=== PATIENT | male | born 1950 | race Caucasian/White ===

== ENCOUNTER → 2017-10-17 12:17 | Outpatient (CLI) | payer MEDICARE, OTHER, SELFPAY ==
[2017-10-17 14:12] LABS: Absolute Lymphocyte Count 1.27 X10^3/ul (0.83-4.51); Basophil# 0.03 X10^3/uL; Basophil% 0.6 % (0-1); Eosinophil# 0.26 X10^3/uL; Eosinophils% 5.4 % (0-5); Hematocrit 45.1 % (40-54); Hemoglobin 15.2 g/dl (13.0-16.5); Lymphocyte # 1.27 X10^3/ul (4.0); Lymphocyte % 26.2 % (19-41); Mean Corp Hgb Conc 33.7 g/gl (32-36); Mean Corpuscular Hgb 31.5 pg (27.0-32.0); Mean Corpuscular Volume 93.6 fL (80-94); Mean Platelet Vol. 9.1 fl (6.2-12.0); Monocyte# 0.33 X10^3/uL; Monocyte% 6.8 % (0-10); Neutrophil # 2.96 X10^3/uL (2.7-7.7); POSITIVE COUNT NO; POSITIVE DIFFERENTIAL NO; POSITIVE MORPHOLOGY NO; Platelet Count 197 K/mm3 (150-450); RBC Distribution Width CV 13.2 % (11.6-14.6); RBC Distribution Width SD 45.2 fl (35.1-43.9); Red Blood Count 4.82 M/mm3 (4.6-6.2); White Blood Count 4.9 K/mm3 (4.4-11.0)
[2017-10-17 14:35] LABS: ALB/GLOB Ratio 1.1 RATIO (0.9-2.4); AST(SGOT) 13 U/L (15-37); Alanine Aminotransfer ALT/SGPT 27 U/L (16-61); Albumin, Serum 3.9 g/dL (3.2-5.0); Alkaline Phosphatase 77 U/L (45-117); Anion Gap 7 (5-15); BUN 16 mg/dL (7-18); Calcium,Total 8.8 mg/dL (8.5-10.1); Chloride 107 mmol/L (98-107); Cholesterol 207 mg/dL (200); Creatinine, Serum 0.84 mg/dL (0.70-1.30); EST Glomerular Filtration Rate 96 mL/min (>60); Est Glom Filt Rate - Afr Amer 116 mL/min (>60); Globulin 3.6 g/dL (2.2-4.2); Glucose 81 mg/dL (74-106); High Density Lipoprotein 45 mg/dL; Protein, Total 7.5 g/dL (6.4-8.2); Sodium Level 142 mmol/L (136-145); Triglycerides 81 mg/dL; Very Low Density Lipoprotein 16 mg/dL (5-40)
== END ==
PROVIDERS: Family Provider Family Medicine; PCP Family Medicine; Visit Provider Family Medicine
DX: Z00.00 Encounter for general adult medical examination without abnormal findings (principal)
CPT/HCPCS: 36415; 80053; 80061; 85025

== ENCOUNTER → 2021-01-28 14:43 | Outpatient (CLI) | payer MEDICARE, OTHER, SELFPAY ==
--- NOTE | 2021-01-28 14:52 | RAD_ITS ---
STUDY: X-RAY - BILATERAL RIBS WITH CHEST REASON FOR EXAM: Male, 70 years old. Across the lower chest and ribs bilaterally. Trauma to the anterior chest 2 days ago. TECHNIQUE - RIBS: 6 view(s) of the ribs. TECHNIQUE - CHEST: Single PA view of the chest. COMPARISON: None. FINDINGS - RIBS : Normal visualized ribs without a demonstrated fracture. FINDINGS - CHEST: The lungs are clear and expanded. There is no demonstrated pleural abnormality. Normal size heart. Normal mediastinum and ramonita. Normal visualized pulmonary arteries. Normal visualized aortic arch and descending thoracic aorta. There are diffuse degenerative changes of the visualized thoracic spine. There is degenerative osteoarthritis of the bilateral shoulders. There is no demonstrated abnormality of the visualized soft tissue structures of the upper abdomen. RAD/Ribs [place] Min 4V w/PA Chest IMPRESSION: RIBS: Normal x-ray examination of the bilateral ribs. CHEST: Degenerative changes, as described above. No demonstrated acute cardiopulmonary process. Electronically Signed: Celestino Henriquez DO at 18:06 EDT Tel [phone], Service support ,
== END ==
PROVIDERS: PCP Family Medicine; Referring Provider Family Medicine; Visit Provider Family Medicine
DX: R07.81 Pleurodynia (principal)
CPT/HCPCS: 71111

== ENCOUNTER → 2023-07-14 | Outpatient (CLI) | payer MEDICARE, OTHER, SELFPAY ==
[2023-07-14 17:30] LABS: Absolute Lymphocyte Count 1.54 X10^3/uL (0.83-4.51); Basophil# 0.04 X10^3/uL; Basophil% 0.8 % (0-1); Eosinophils% 3.8 % (0-5); Hematocrit 40.9 % (40-54); Hemoglobin 13.8 g/dL (13.0-16.5); Lymphocyte # 1.54 X10^3/ul (0.83-4.51); Lymphocyte % 29.2 % (19-41); Mean Corp Hgb Conc 33.7 g/dL (32-36); Mean Corpuscular Hgb 31.7 pg (27.0-32.0); Mean Platelet Vol. 9.1 fl (6.2-12.0); Monocyte# 0.44 X10^3/uL; Monocyte% 8.3 % (0-10); NRBC Flagged by Analyzer 0 % (0-5); Neutrophil # 3.03 X10^3/uL (2.7-7.7); Neutrophil % 57.5 % (47-70); Platelet Count 259 K/mm3 (150-450); RBC Distribution Width CV 12.3 % (11.6-14.6); RBC Distribution Width SD 42.8 fl (35.1-43.9); Red Blood Count 4.35 M/mm3 (4.6-6.2); White Blood Count 5.3 K/mm3 (4.4-11.0)
[2023-07-14 18:00] LABS: ALB/GLOB Ratio 0.9 RATIO (0.9-2.4); AST(SGOT) 11 U/L (15-37); Alanine Aminotransfer ALT/SGPT 31 U/L (16-61); Albumin, Serum 3.5 g/dL (3.2-5.0); Alkaline Phosphatase 96 U/L (45-117); Anion Gap 5 (5-15); BUN 18 mg/dL (7-18); BUN/Creat Ratio 19.4 RATIO (10-20); Calcium,Total 9.2 mg/dL (8.5-10.1); Chloride 107 mmol/L (98-107); Creatinine, Serum 0.93 mg/dL (0.70-1.30); EST Glomerular Filtration Rate 85 mL/min (>60); Est Glom Filt Rate - Afr Amer 103 mL/min (>60); Ferritin 199 ng/mL (26-388); Glucose 96 mg/dL (74-106); Magnesium 2.5 mg/dL (1.6-2.6); Potassium 4.2 mmol/L (3.5-5.1); Protein, Total 7.5 g/dL (6.4-8.2); Sodium Level 139 mmol/L (136-145); Thyroid Stim Hormone (TSH) 2.29 uIU/mL (0.358-3.74)
== END | disposition home or self-care (01) ==
LOC: MFPLAB 14:36
PROVIDERS: PCP Family Medicine; Visit Provider Family Medicine
DX: I48.91 Unspecified atrial fibrillation (principal); E87.6 Hypokalemia; Z51.81 Encounter for therapeutic drug level monitoring
CPT/HCPCS: 36415; 80053; 82728; 83735; 84443; 85025

== ENCOUNTER → 2023-08-29 | Outpatient (CLI) | payer MEDICARE, OTHER, SELFPAY ==
--- NOTE | 2023-08-29 16:42 | STRESSREP ---
Stress Test Report Exercise myocardial perfusion stress test. 73-year-old man with a history of atrial fibrillation and coronary artery disease Stress protocol: Resting EKG demonstrates sinus bradycardia with a rate of 56 bpm resting blood pressure is 130/82 mmHg. The patient exercised according to the regular [place] protocol for a total duration of 7 minutes attaining a maximum heart rate of 130 bpm which was 89% of maximum predicted heart rate; the maximum workload was 10 metabolic equivalents. At rest there were no ST or T wave changes noted to suggest ischemia and at peak exercise upsloping ST changes only were noted which did not meet the criteria for ischemia. No clinical angina was noted the test was terminated due to the target heart rate being achieved/fatigue. The peak blood pressure was 154/72 mmHg. Rate-pressure product was 17,007. Myocardial perfusion protocol. 11.1 mCi of technetium 99m sestamibi was injected at rest. The patient exercised according to regular [place] protocol for total duration of 7-minute and at peak exercise 33.5 mCi of technetium 99m sestamibi was injected stress images were obtained stress and rest images were reconstructed in comparing the short axis vertical long and horizontal long axis. Gated images were also obtained. Perfusion SPECT analysis: Review of the stress images demonstrate normal uptake of tracer noted in all areas of the myocardium. The resting images similarly demonstrate normal uptake of tracer noted in all areas of the myocardium. No areas of reversibility are noted to suggest ischemia no previous infarct was noted. Gated SPECT analysis: The gated ejection fraction is 70%. Conclusion: Normal exercise myocardial perfusion stress test at a high workload Preserved ejection fraction.
== END | disposition home or self-care (01) ==
LOC: CVS 06:20
PROVIDERS: PCP Family Medicine; Referring Provider Internal Medicine Cardiovascular Disease; Visit Provider Internal Medicine Cardiovascular Disease
DX: I10 Essential (primary) hypertension (principal); I25.10 Atherosclerotic heart disease of native coronary artery without angina pectoris
CPT/HCPCS: 78452; 93017; A9500; A4216

== ENCOUNTER → 2024-05-07 | Outpatient (CLI) | payer MEDICARE, OTHER, SELFPAY ==
[2024-05-07 12:06] LABS: Absolute Lymphocyte Count 1.29 X10^3/uL (0.83-4.51); Absolute Neutrophil Count 2.7 X10^3/uL (2.0-7.7); Basophil# 0.02 X10^3/uL; Basophil% 0.4 % (0-1); Eosinophil# 0.14 X10^3/uL; Hematocrit 44.6 % (40-54); Hemoglobin 14.7 g/dL (13.0-16.5); Lymphocyte # 1.29 X10^3/ul (0.83-4.51); Lymphocyte % 27.9 % (19-41); Mean Corpuscular Hgb 31.2 pg (27.0-32.0); Mean Corpuscular Volume 94.7 fL (80-94); Mean Platelet Vol. 9.5 fl (6.2-12.0); Monocyte# 0.43 X10^3/uL; Monocyte% 9.3 % (0-10); NRBC Flagged by Analyzer 0 % (0-5); Neutrophil # 2.74 X10^3/uL (2.7-7.7); Neutrophil % 59.2 % (47-70); Platelet Count 192 K/mm3 (150-450); RBC Distribution Width CV 12.7 % (11.6-14.6); RBC Distribution Width SD 44.1 fl (35.1-43.9); Red Blood Count 4.71 M/mm3 (4.6-6.2); White Blood Count 4.6 K/mm3 (4.4-11.0)
[2024-05-07 12:25] LABS: AST(SGOT) 14 U/L (15-37); Alanine Aminotransfer ALT/SGPT 27 U/L (16-61); Albumin, Serum 3.6 g/dL (3.2-5.0); Alkaline Phosphatase 82 U/L (45-117); Anion Gap 6 (5-15); BUN 19 mg/dL (7-18); BUN/Creat Ratio 20.1 RATIO (10-20); Chloride 107 mmol/L (98-107); Cholesterol 207 mg/dL (200); Creatinine, Serum 0.95 mg/dL (0.70-1.30); EST Glomerular Filtration Rate 83 mL/min (>60); Est Glom Filt Rate - Afr Amer 100 mL/min (>60); Globulin 3.7 g/dL (2.2-4.2); Glucose 101 mg/dL (74-106); High Density Lipoprotein 44 mg/dL; Potassium 4.3 mmol/L (3.5-5.1); Protein, Total 7.3 g/dL (6.4-8.2); Sodium Level 139 mmol/L (136-145); Triglycerides 102 mg/dL; Very Low Density Lipoprotein 20 mg/dL (5-40)
== END | disposition home or self-care (01) ==
LOC: MFPLAB 10:11
PROVIDERS: PCP Family Medicine; Referring Provider Family Medicine; Visit Provider Family Medicine
DX: I48.91 Unspecified atrial fibrillation (principal); Z51.81 Encounter for therapeutic drug level monitoring; E78.5 Hyperlipidemia, unspecified; Z12.5 Encounter for screening for malignant neoplasm of prostate
CPT/HCPCS: 36415; 80053; 80061; 84153; 85025; G0103

== ENCOUNTER → 2024-08-05 | Outpatient (CLI) | payer MEDICARE, OTHER, SELFPAY ==
[2024-08-07 13:08] LABS: PSA, Free 0.77 ng/mL; PSA, Free % 6.5 % (.)
== END | disposition home or self-care (01) ==
LOC: MFPLAB 10:37
PROVIDERS: PCP Family Medicine; Visit Provider Urology
DX: R97.20 Elevated prostate specific antigen [PSA] (principal)
CPT/HCPCS: 36415; 84153; 84154

== ENCOUNTER 2024-09-03 15:22 | Outpatient (CLI) | payer MEDICARE, OTHER, SELFPAY ==
--- NOTE | 2024-09-03 13:00 | PROSBIL_PTH ---
PATIENT: FLORENCIO RAMOS LOC: [facility] U#:[id number] AGE/SX: 74/M ROOM: RE09/03/[address]: Dr. Azael Hylton MD : 1950 BED: DIS: 09/03/2024 SPEC #: [id number] RECD: 09/04/24 10:57 STATUS: ALY REShruthi #: [id number] JAKY: 09/03/24 13:[address]: Azael Hylton DEPT: SURGICAL PATHOLOGY RECD BY: Abelardo Solomon ENTERED: 09/04/24 10:57 SP TYPE: PROST BX OT DR: Dr. Loc Hamilton MD Tissues: A - PROSTATE RIGHT B - PROSTATE RIGHT C - PROSTATE RIGHT D - PROSTATE LEFT E - PROSTATE LEFT F - PROSTATE LEFT Procedures: PROSTATE BX Immunohistochemical Stains HEADER OPERATION: Prostate biopsy PRE-OP DIAGNOSIS: Elevated PSA TISSUE SUBMITTED: A - Right apex, B - Right mid, C - Right base, D - Left apex, E - Left mid, F - Left base MICROSCOPIC DIAGNOSIS A. Prostate, Right [place], Biopsy: - Adenocarcinoma [place] 3+3=6, 1/1 core, involving 80% of the tissue. B. Prostate, Right Mid, Biopsy: - Adenocarcinoma [place] 3+3=6, 1/1 core, involving 95% of the tissue. C. Prostate, Right Base, Biopsy: - Adenocarcinoma [place] 3+3=6, 1/1 core, involving 80% of the tissue. D. Prostate, Left [place], Biopsy: - Adenocarcinoma [place] 3+3=6, 1/1 core, involving 5% of the tissue. E. Prostate, Left Mid, Biopsy: - Few scattered atypical glands suggestive of adenocarcinoma, 1/1 core, involving less than 2% of the tissue. Note: IHC for [id number] was utilized in the assessment. F. Prostate, Left Base, Biopsy: - Few atypical glands suggestive of adenocarcinoma, 1/1 core, involving less than 2% of the tissue. Note: IHC for 34be12 was utilized in the assessment MICROSCOPIC DESCRIPTION Slides are reviewed. These tests were developed and their performance characteristics determined by [facility]. They may not have been cleared or approved by the U.S. Food and Drug Administration. The FDA has determined that such clearance or approval is not necessary. The above immunohistochemical/dualISH markers are ordered and reviewed by the Pathologist. GROSS DESCRIPTION A. Received in formalin in a container labeled with the patient's name, date of , and RA is a 1.0 cm in length by 0.2 cm in diameter wispy core biopsy of [place] soft tissue. Submitted in toto in A1. B. Received in formalin in a container labeled with the patient's name, date of , and RM is a 1.2 cm in length by 0.2 cm in diameter wispy core biopsy of [place] soft tissue. Submitted in toto in B1. C. Received in formalin in a container labeled with the patient's name, date of , and RB is a 1.4 cm in length by 0.2 cm in diameter wispy core biopsy of [place] soft tissue. Submitted in toto in C1. D. Received in formalin in a container labeled with the patient's name, date of , and LA is a 0.7 cm in length by 0.2 cm in diameter wispy core biopsy of [place] soft tissue with multiple core biopsy fragments. Submitted in toto in D 1. E. Received in formalin in a container labeled with the patient's name, date of , and LM is a 1.5 cm in length by 0.2 cm in diameter wispy core biopsy of [place] soft tissue. Submitted in toto in E1. F. Received in formalin in a container labeled with the patient's name, date of , and LB is a 1.3 cm in length by 0.2 cm in diameter wispy core biopsy of [place] soft tissue. Submitted in toto in F1. SB 09/04/2024 CPT: G0146, 78810, 84935
== END 2024-09-03 23:59 | disposition home or self-care (01) ==
LOC: LABSPEC 15:25
PROVIDERS: PCP Family Medicine; Referring Provider Urology; Visit Provider Urology
DX: C61 Malignant neoplasm of prostate (principal); R97.20 Elevated prostate specific antigen [PSA]
CPT/HCPCS: 88305; 88342; G0416

== ENCOUNTER 2024-10-11 05:20 | Day surgery (SDC) | payer MEDICARE, OTHER, SELFPAY ==
--- NOTE | 2024-10-07 14:15 | PAT.ANE_ITS ---
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 When Was Last Pacemaker Check QUESTION #4 FULL TEXT: You/Your Family Experience fever (hyperthermia) with Anesthesia Last Oral Intake Last Oral intake: Last Oral Intake NPO since Meds taken in AM with sips of water? Meds patient instructed to take am of surgery PONV PONV - diesel mechanic: PONV - diesel mechanic Female No 10/04/24 11:19 HX of Motion Sickness No 10/04/24 11:19 HX of N/V After Surgery No 10/04/24 11:19 Non-Smoker Yes 10/04/24 11:19 Duration of Surgery greater No 10/04/24 11:19 than 60 minutes Number of Risk Factors 1 10/04/24 11:19 PONV Score Low Risk 10/04/24 11:19 Height & Weight Height & Weight: Anesthesia: Height & Weight Height 5 ft 8 in 09/27/24 09:37 Respiratory Assessment Respiratory Assessment - diesel mechanic: Respiratory Tract Infection Hx - diesel mechanic Hx Respiratory Tract Infection No 10/04/24 11:19 STOP Sleep Apnea STOP Sleep Apnea - diesel mechanic: STOP Sleep Apnea - diesel mechanic Hx Hypertension Yes: CONTROLLED ON MED 10/04/24 11:19 Hx Sleep Apnea No 10/04/24 11:19 CPAP BIPAP Do you snore loudly (louder Yes 10/04/24 11:19 than talking or can be heard Do you often feel tired/ No 10/04/24 11:19 fatigued/ sleepy during daytime? Has anyone observed you stop No 10/04/24 11:19 breathing during sleep? STOP Results Positive 10/04/24 11:19 QUESTION #5 FULL TEXT : Do you snore loudly (louder than talking or can be heard through closed doors)? 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 Specify any problems Hx of Preganancy in last 3 N/A 10/04/24 11:19 Months Nurse Filling Out Transfusion VCHRISTIN 10/04/24 11:19 & Questions: Date: 10/04/24 10/04/24 11:19 Time: 11:20 10/04/24 11:19 Patient unable to answer at this time (ie. confused, unrespo /Reproduction History /Reproductive History - diesel mechanic: /Reproductive Hx- diesel mechanic Hx Now Gestational Age (in weeks): EDC: Hx Hx Para Hx Section SAB PFSH Medical History (Updated 10/04/24 @ 11:18 by Charisma Euceda) Wears glasses Non-smoker History of echocardiogram History of stress test Hypertension Cardiology follow-up encounter Benign prostatic hyperplasia without lower urinary tract symptoms Nocturia Elevated PSA Prostate cancer Hypokalemia Atrial fibrillation with rapid ventricular response Dyslipidemia Home Medications ?Medication ?Instructions ?Recorded ?Last Taken ?Type metoprolol tartrate 50 mg tablet 50 mg PO BID 07/13/23 Unknown History multivitamin 1 tab PO DAILY 07/13/23 Unkn own History rivaroxaban 20 mg tablet (Xarelto) 20 mg PO DAILY #90 tabs 10/09/23 Unknown Rx losartan 100 mg tablet 100 mg PO DAILY #90 tabs Unknown Rx Allergy/AdvReac Type Severity Reaction Status Date / Time Sulfa (Sulfonamide AdvReac Intermediate Rash Verified 10/04/24 11:12 Antibiotics) Family History Mother Meningitis spinal Father Cancer Kidney Diabetes Surgical History H/O prostate biopsy Fracture, clavicle History of colonoscopy Social History Smoking Status: Never smoker alcohol intake: never substance use type: does not use caffeine: Yes Type: coffee Number of servings: 3 Audit: Pertinent Findings HISTORY of Pertinent Findings History of Pertinent Findings: Pleasant 74-year-old man with a recent history of atrial fibrillation with a rapid ventricular response rate. He underwent RONEY guided cardioversion in [place]. He presents today for a follow-up evaluation. He tells me that he has been diagnosed with prostate cancer and needs to have radiation therapy as well as hormonal therapy. He was quite worried after his last visit here in the office. His last echocardiogram demonstrated an ejection fraction of 65% with biatrial enlargement. Pertinent Findings EKG Perinent findings: Atrial fibrillation Stress test pertinent findings: Normal exercise myocardial perfusion stress test at a high workload Preserved ejection fraction. Echo (EF%) pertinent findings: LVEF >65% LA severly dilated RVSP 47 mmHg, moderate triscupid regurg. Recommendation Anesthesia Recommendation Anesthesia recommendation: F/U recommended (Please obtain cardiology clearance for this patient, he has pAF and seems to be chronically in atrial fibrillation. )
--- NOTE | 2024-10-10 11:33 | PAT.ANE_ITS ---
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 When Was Last Pacemaker Check QUESTION #4 FULL TEXT: You/Your Family Experience fever (hyperthermia) with Anesthesia Last Oral Intake Last Oral intake: Last Oral Intake NPO since Meds taken in AM with sips of water? Meds patient instructed to take am of surgery PONV PONV - real estate financial analyst: PONV - real estate financial analyst Female No 10/04/24 11:19 HX of Motion Sickness No 10/04/24 11:19 HX of N/V After Surgery No 10/04/24 11:19 Non-Smoker Yes 10/04/24 11:19 Duration of Surgery greater No 10/04/24 11:19 than 60 minutes Number of Risk Factors 1 10/04/24 11:19 PONV Score Low Risk 10/04/24 11:19 Height & Weight Height & Weight: Anesthesia: Height & Weight Height 5 ft 8 in 09/27/24 09:37 Respiratory Assessment Respiratory Assessment - real estate financial analyst: Respiratory Tract Infection Hx - real estate financial analyst Hx Respiratory Tract Infection No 10/04/24 11:19 STOP Sleep Apnea STOP Sleep Apnea - real estate financial analyst: STOP Sleep Apnea - real estate financial analyst Hx Hypertension Yes: CONTROLLED ON MED 10/04/24 11:19 Hx Sleep Apnea No 10/04/24 11:19 CPAP BIPAP Do you snore loudly (louder Yes 10/04/24 11:19 than talking or can be heard Do you often feel tired/ No 10/04/24 11:19 fatigued/ sleepy during daytime? Has anyone observed you stop No 10/04/24 11:19 breathing during sleep? STOP Results Positive 10/04/24 11:19 QUESTION #5 FULL TEXT : Do you snore loudly (louder than talking or can be heard through closed doors)? 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 Specify any problems Hx of Preganancy in last 3 N/A 10/04/24 11:19 Months Nurse Filling Out Transfusion VCHRISTIN 10/04/24 11:19 & Questions: Date: 10/04/24 10/04/24 11:19 Time: 11:20 10/04/24 11:19 Patient unable to answer at this time (ie. confused, unrespo /Reproduction History /Reproductive History - real estate financial analyst: /Reproductive Hx- real estate financial analyst Hx Now Gestational Age (in weeks): EDC: Hx Hx Para Hx Section SAB Active Medications Active Medications: Current Medications Generic Name Dose Route Start Last Admin Trade Name Freq PRN Reason Stop Dose Admin Cefazolin Sodium 2 gm/ Sodium 110 mls @ 150 mls/hr 10/11/24 07:30 Chloride IV 10/11/24 08:13 INTRAOP ONE [facility] Medical History (Updated 10/08/24 @ 10:[address] Gian King, DO) Wears glasses Non-smoker History of echocardiogram History of stress test Hypertension Cardiology follow-up encounter Benign prostatic hyperplasia without lower urinary tract symptoms Nocturia Elevated PSA Prostate cancer Hypokalemia Atrial fibrillation with rapid ventricular response Dyslipidemia Home Medications ?Medication ?Instructions ?Recorded ?Last Taken ?Type metoprolol tartrate 50 mg tablet 50 mg PO BID 07/13/23 Unknown History multivitamin 1 tab PO DAILY 07/13/23 Unkn own History rivaroxaban 20 mg tablet (Xarelto) 20 mg PO DAILY #90 tabs 10/09/23 Unknown Rx losartan 100 mg tablet 100 mg PO DAILY #90 tabs Unknown Rx Allergy/AdvReac Type Severity Reaction Status Date / Time Sulfa (Sulfonamide AdvReac Intermediate Rash Verified 10/04/24 11:12 Antibiotics) Family History Mother Meningitis spinal Father Cancer Kidney Diabetes Surgical History H/O prostate biopsy Fracture, clavicle History of colonoscopy Social History Smoking Status: Never smoker alcohol intake: never substance use type: does not use caffeine: Yes Type: coffee Number of servings: 3 Audit: Pertinent Findings HISTORY of Pertinent Findings History of Pertinent Findings: EKG Pertinent Findings EKG Perinent findings Atrial fibrillation 10/07/24 14:16 Stress Test Pertinent Findings Stress test pertinent findings Normal exercise myocardial 10/07/24 14:16 perfusion stress test at a high workload Preserved ejection fraction. Echo Pertinent Findings Echo (EF%) pertinent findings LVEF >65% 10/07/24 14:17 LA severly dilated RVSP 47 mmHg, moderate triscupid regurg. Pertinent Findings Consult pertinent findings: 09/20/2024. Dr. Neal. 1. Hypertension?acute-controlled. 2. Paroxysmal atrial fibrillation?[id number] score is 2. Atrial fibrillation stage IIIa. Plan is to continue anticoagulation and rate control. No plans to attempt cardioversion at this time. Recommendation Anesthesia Recommendation Anesthesia recommendation: OPTIMIZED for anesthesia
[2024-10-11] VITALS (9 sets, daily range): BP systolic 90–153; BP diastolic 67–96; PULSE 78–138; RESP 16–18; TEMP 36.8–37.3; O2SAT 94–100; BMI 29.1
[2024-10-11] MEDS: Lactated Ringers 1,000 ML 15 ML IV (06:00)
--- NOTE | 2024-10-11 06:35 | PRE.ANES_ITS ---
ASA Classification* ASA Classification ASA Classification: 3 Assessment & Plan Anesthesia* Anesthesia Assessment Anesthesia Assessment: Discussed sedation and/or anesthesia options, risks, benefits, and alternatives with patient/parents/legal guardian/POA. Questions invited. The patient/parents/legal guardian/POA seems to understand and agrees to proceed with anesthesia plan. Reviewed the physical assessment, medical history, allergy history and patient home medications list prior to surgery/procedure/anesthetic and documented any changes. Performed airway and anesthesia risk assessments. Anesthesia Type Anesthesia Type: General History Source History Obtained from:: Patient, Chart and Significant Other Anesthesia Focused Assessment* Temperature: 98.6 F Pulse Rate: 80 Blood Pressure: 153/90 Respiratory Rate: 16 Pulse Ox: 100 Oxygen Delivery Method: Room Air Airway Assessment Mouth opens: 2 cm Mallampati Score: II Teeth Condition: Intact Neck Range of motion (ROM): Full ROM Focused Labs Anesthesia Preop lab: CBC WBC 4.6 K/mm3 (4.4-11.0) 05/07/24 10:11 05/07/24 RBC 4.71 M/mm3 (4.6-6.2) 05/07/24 10:11 05/07/24 Hgb 14.7 g/dL (13.0-16.5) 05/07/24 10:11 05/07/24 Hct 44.6 % (40-54) 05/07/24 10:11 05/07/24 Plt Count 192 K/mm3 (150-450) 05/07/24 10:11 05/07/24 CHEMISTRY Potassium 4.3 mmol/L (3.5-5.1) 05/07/24 10:11 05/07/24 Sodium 139 mmol/L (136-145) 05/07/24 10:11 05/07/24 Magnesium 2.5 mg/dL (1.6-2.6) 07/14/23 14:37 07/14/23 BUN 19 mg/dL (7-18) H 05/07/24 10:11 05/07/24 Creatinine 0.95 mg/dL (0.70-1.30) 05/07/24 10:11 05/07/24 Glucose 101 mg/dL (74-106) 05/07/24 10:11 05/07/24 TSH 2.29 uIU/mL (0.358-3.74) 07/14/23 14:37 COAG Pre-Assessment Diagnosis/Proposed Procedure Planned Operative Procedure(s): Space OAR and Gold Markers Placement Anesthesia History 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 When Was Last Pacemaker Check QUESTION #4 FULL TEXT: You/Your Family Experience fever (hyperthermia) with Anesthesia Last Oral Intake Last Oral intake: Last Oral Intake NPO since 17:00 10/11/24 05:57 Meds taken in AM with sips of No 10/11/24 05:57 water? Meds patient instructed to take am of surgery PONV PONV - building maintenance custodian: PONV - building maintenance custodian Female No 10/04/24 11:19 HX of Motion Sickness No 10/04/24 11:19 HX of N/V After Surgery No 10/04/24 11:19 Non-Smoker Yes 10/04/24 11:19 Duration of Surgery greater No 10/04/24 11:19 than 60 minutes Number of Risk Factors 1 10/04/24 11:19 PONV Score Low Risk 10/04/24 11:19 Height & Weight Height & Weight: Anesthesia: Height & Weight Height 5 ft 8 in 10/11/24 05:57 Weight: 86.9 kg 10/11/24 05:57 Body Mass Index (BMI) 29.1 10/11/24 05:57 Respiratory Assessment Respiratory Assessment - building maintenance custodian: Respiratory Tract Infection Hx - building maintenance custodian Hx Respiratory Tract Infection No 10/04/24 11:19 STOP Sleep Apnea STOP Sleep Apnea - building maintenance custodian: STOP Sleep Apnea - building maintenance custodian Hx Hypertension Yes: CONTROLLED ON MED 10/04/24 11:19 Hx Sleep Apnea No 10/04/24 11:19 CPAP BIPAP Do you snore loudly (louder Yes 10/04/24 11:19 than talking or can be heard Do you often feel tired/ No 10/04/24 11:19 fatigued/ sleepy during daytime? Has anyone observed you stop No 10/04/24 11:19 breathing during sleep? STOP Results Positive 10/04/24 11:19 QUESTION #5 FULL TEXT : Do you snore loudly (louder than talking or can be heard through closed doors)? Tobacco Use History Tobacco Use History - building maintenance custodian: Tobacco Use History - building maintenance custodian Tobacco Use Smoking Status Never smoker 10/04/24 11:19 Hx Tobacco Use No 10/04/24 11:19 Years Smoking Packs Smoked per Day Smoking Cessation Date was within the last 15 years Hx Smoking Cessation Date Hx Smoking Cessation Counseling Hematologic Medial History Hematologic Hx - building maintenance custodian: Hematologic Medical Hx - resident program specialist Hx of Blood Transfusion No 10/04/24 11:19 Hx of Transfusion in last 3 No 10/04/24 11:19 Months Date of Last Transfusion (if within last 3 months) Ever experience any problems No 10/04/24 11:19 with transfusion(s)? Specify any problems Hx of Preganancy in last 3 N/A 10/04/24 11:19 Months Nurse Filling Out Transfusion VCHRISTIN 10/04/24 11:19 & Questions: Date: 10/04/24 10/04/24 11:19 Time: 11:20 10/04/24 11:19 Patient unable to answer at this time (ie. confused, unrespo /Reproduction History /Reproductive History - building maintenance custodian: /Reproductive Hx- building maintenance custodian Hx Now Gestational Age (in weeks): EDC: Hx Hx Para Hx Section SAB Active Medications Active Medications: Current Medications Generic Name Dose Route Start Last Admin Trade Name Freq PRN Reason Stop Dose Admin Cefazolin Sodium 2 gm/ Sodium 110 mls @ 150 mls/hr 10/11/24 07:30 Chloride IV 10/11/24 08:13 INTRAOP ONE Lactated Ringer's 1,000 mls @ 15 mls/hr 10/11/24 05:45 10/11/24 06:00 IV 15 mls/hr .Q48H TRACY Administration PFSH Medical History (Updated 10/08/24 @ 10:[address] Gian King, DO) Wears glasses Non-smoker History of echocardiogram History of stress test Hypertension Cardiology follow-up encounter Benign prostatic hyperplasia without lower urinary tract symptoms Nocturia Elevated PSA Prostate cancer Hypokalemia Atrial fibrillation with rapid ventricular response Dyslipidemia Home Medications ?Medication ?Instructions ?Recorded ?Last Taken ?Type metoprolol tartrate 50 mg tablet 50 mg PO BID 07/13/23 Unknown History multivitamin 1 tab PO DAILY 07/13/23 Unkn own History rivaroxaban 20 mg tablet (Xarelto) 20 mg PO DAILY #90 tabs 10/09/23 10/07/24 Rx losartan 100 mg tablet 100 mg PO DAILY #90 tabs Unknown Rx Allergy/AdvReac Type Severity Reaction Status Date / Time Sulfa (Sulfonamide AdvReac Intermediate Rash Verified 10/11/24 05:56 Antibiotics) Family History Mother Meningitis spinal Father Cancer Kidney Diabetes Surgical History H/O prostate biopsy Fracture, clavicle History of colonoscopy Social History Smoking Status: Never smoker alcohol intake: never substance use type: does not use caffeine: Yes Type: coffee Number of servings: 3 Review of Systems (Anesthesia) ROS Narrative System reviewed and no additional complaints, except as documented. Physical Exam Const alert and oriented x3 HEENT dentition normal Resp normal respiratory effort and normal air movement Cardio Rhythm: abnormal rhythm Back/Spine normal ROM Extremity full ROM Neuro oriented x3
--- NOTE | 2024-10-11 07:09 | PCM.HP.STD ---
HPI - General General Date of Service: 10/11/24 Chief Complaint: Prostate cancer HPI Narrative FLORENCIO RAMOS, is a 74 M who presents for placement of gold markers and spacer gel for prostate cancer he has intermediate risk disease he plans to get hormone therapy and radiation therapy to the prostate. [facility] Medical History (Updated 10/08/24 @ 10:[address] Gian King, DO) Wears glasses Non-smoker History of echocardiogram History of stress test Hypertension Cardiology follow-up encounter Benign prostatic hyperplasia without lower urinary tract symptoms Nocturia Elevated PSA Prostate cancer Hypokalemia Atrial fibrillation with rapid ventricular response Dyslipidemia Home Medications ?Medication ?Instructions ?Recorded ?Last Taken ?Type metoprolol tartrate 50 mg tablet 50 mg PO BID 07/13/23 Unknown History multivitamin 1 tab PO DAILY 07/13/23 Unknown History rivaroxaban 20 mg tablet (Xarelto) 20 mg PO DAILY #90 tabs 10/09/23 10/07/24 Rx losartan 100 mg tablet 100 mg PO DAILY #90 tabs 09/20/24 Unknown Rx Allergy/AdvReac Type Severity Reaction Status Date / Time Sulfa (Sulfonamide AdvReac Intermediate Rash Verified 10/11/24 05:56 Antibiotics) Family History Mother Meningitis spinal Father Cancer Kidney Diabetes Surgical History H/O prostate biopsy Fracture, clavicle History of colonoscopy Social History Smoking Status: Never smoker alcohol intake: never substance use type: does not use caffeine: Yes Type: coffee Number of servings: 3 Vital Signs Vital Signs Vital Signs: 10/11/24 05:57 10/11/24 05:57 10/11/24 06:43 Temperature 98.6 F 98.6 F Temperature Source Temporal Pulse Rate 80 80 Respiratory Rate 16 16 Respiratory Pattern Normal Blood Pressure 153/90 H 153/90 H Blood Pressure Mean 111 Blood Pressure Source Monitor Blood Pressure Position Sitting Blood Pressure Location Right Arm Pulse Ox 100 100 Oxygen Delivery Method Room Air Room Air Weight Weight: 86.9 kg Body Mass Index (BMI) 29.1
[2024-10-11] MEDS: Cefazolin 2 GM in 0.9% Normal Saline (100mL Bag) 100 ML IV (07:34)
[2024-10-11] MEDS: Lidocaine 1% (20 ml mdv) 20 ML Vial (07:40)
--- NOTE | 2024-10-11 07:56 | DCINST_ITS ---
Discharge Instructions Diet Discharge Diet: No restrictions DC O2, CPAP, BIPAP needs Home O2 Discharge instructions: No Dressing / Incision Discharge Activity: Return to Normal Activity and May Not Drive (while taking narcotic pain medications.) Dressing / Incision Call your doctor if you observe: Fever of 101 or Higher Follow Up Care Please Follow Up With: Azael Parr MD When: Call [phone] for an appointment Test Results: Test results from this visit will be discussed in further detail at your follow- up appointment, if applicable. Discharge Plan Admission Primary Reason for Your Visit: gold markers, spacer gel Attending Provider: Azael Parr Primary Care Provider: Loc Hamilton Instructions Print Language: Luxembourgish Discharge Orders/Prescriptions Prescriptions: No Action multivitamin Tablet 1 tab PO DAILY metoprolol tartrate 50 mg tablet 50 mg PO BID Patient Comments: TAKE 1 TABLET BY MOUTH TWICE A DAY losartan 100 mg tablet 100 mg PO DAILY Qty: 90 3RF Xarelto 20 mg tablet 20 mg PO DAILY Qty: 90 3RF Patient Comments: STOP 3 DAYS PRIOR TO OR PER DR. PARR Referrals / Follow Up: Loc Hamilton MD [Primary Care Provider] - Azael Parr MD [Med Staff - Active Staff] - Disposition Disposition (needs filled in before D/C Order can be placed): Home, Self Care
--- NOTE | 2024-10-11 07:56 | PCM.OPRPT ---
Operative Report (Standard) Operative Information Date of Procedure: 10/11/24 Pre-Operative Diagnosis: Prostate cancer Post-Operative Diagnosis: The same Surgery/Procedure Performed: Placement of gold markers and spacer gel in preparation for treatment for prostate cancer transfer pumper: No Type of Anesthesia: General RN Documented Start/Stop Times: Operation Date: 10/11/24 07:30 Case Time Into Pre-Op 10/11/24 05:31 Out of Pre-Op 10/11/24 07:30 Anesthesia Start 10/11/24 07:34 Into Room 10/11/24 07:34 Procedure Start 10/11/24 07:46 Procedure End 10/11/24 07:54 Procedure Start Time: 07:46 Procedure Stop Time: 07:57 Select all DRAINS/GRAFTS/IMPLANTS that apply: None Estimated Blood Loss: 0 Specimen collected: No Description of surgery: In the preoperative area I reviewed with the patient how the procedure is done we talked about the risk of the procedure including the risk of infection, bleeding, migration of the spacer gel, the patient is planning to have radiation to the prostate he understands that the spacer gel has demonstrated benefit in reducing the risk of toxicity from the ration radiation to the rectum but there is no guarantees that this spacer gel will prevent any serious complications or toxicity to the rectum or bowels. After reviewing this with the patient and his family organ to proceed with placement of a spacer gel matrix. Patient was taken back to the operating room after smooth induction of anesthesia he was placed supine on the table. The genitals and perineum were prepped and draped in usual sterile fashion. I then introduced a biplanar ultrasound probe into the rectum and performed ultrasonography and identified the Denonvilliers' fascia the prostate mid base and apex and seminal vesicles. The penis and testicles were prepped and draped in usual sterile fashion, ultrasound probe was placed into the rectum and biplanar ultrasound was performed on the prostate. Identified the base mid and apex of the prostate identified the transition zone prostate. Then using a needle the first customs officer was placed into the right base of the prostate, the second customs officer was placed in the left base of the prostate, and the third core marker was placed in the right apex of the prostate after all 3 markers were placed the placement of the markers were confirmed by ultrasonography.The spacer gel mix was then prepared on the back table per manufactures instruction. Under ultrasound guidance in the midline perineum a bevel needle down we advanced through the perineum below the prostate into the space of Denonvilliers' fascia. This space which could be identified by ultrasound with a bright white layer between the prostate and the rectum. I then injected a puff of normal saline to identify the space further. After I confirmed that the needle was in the correct space in the mid prostate and the space of Denonvilliers' fascia between the rectum and the prostate. Then over the course of 15 seconds the gel matrix was injected slowly there was nice separation between the prostate and the rectum at the gel matrix was injected. The position of the gel matrix was confirmed by ultrasound. Then the injection needle was removed intact. Patient's perineum was cleaned patient was taken out of stirrups and then taken back to the PACU in good condition. Surgical Findings: markers placed, spacer gel. Complications Complications: No Admit VTE Documentation VTE Present on Admission: No VTE Mechan Device Prophylaxis: SCD's VTE Pharm Prophylaxis ordered?: No
--- NOTE | 2024-10-11 08:06 | PCM.POST.ANE ---
Anesthesia: Postop Eval I Current Vital Signs Temperature: 99.1 F Pulse Rate: 102 Blood Pressure: 107/69 Respiratory Rate: 16 Pulse Ox: 94 Assessment Airway patent: Yes Spontaneous unlabored respirations: Yes nausea: No Vomiting: No Anesthesia Complication: No Fluid Hydration Crystalloid volume administer (ml): 500 Total IV fluid infused: 500 Progress Note Anesthesia document: Postop Eval 1 completed: Yes
--- NOTE | 2024-10-11 09:59 | POSTOPAN2_ITS ---
Anesthesia Postop Eval I Sum Postop Eval Completion status Anesthesia document: Postop Eval 1 completed: Yes Anesthesia Postop Eval I Summary Anesthesia Postop Eval I Summary: Anesthesia Postop Eval I: Assessment Summary Airway patent Yes 10/11/24 08:06 HAIR AND MAKEUP [email or web address].[email or web address] Spontaneous unlabored Yes 10/11/24 08:06 HAIR AND MAKEUP [email or web address].TNES respirations Mental status nausea No 10/11/24 08:06 HAIR AND MAKEUP DESIGNER.TNES Vomiting No 10/11/24 08:06 HAIR AND MAKEUP DESIGNER.TNES Anesthesia Postop Eval I: Fluid Summary Crystalloid volume administer 500 10/11/24 08:06 HAIR AND MAKEUP DESIGNER.TNES (ml) Colloids volume administered ( ml) Blood Product volume administered (ml) Total IV fluid infused 500 10/11/24 08:06 HAIR AND MAKEUP DESIGNER.TNES Anesthesia Postop Eval I: Summary Notes Anesthesia Complication No 10/11/24 08:06 HAIR AND MAKEUP DESIGNER.TNES Anesthesia Complication Comment: Post-operative progress note Anesthesia: Postop Eval II Evaluation Mental status: Awake and Calm Pain Level: 2 nausea: No Vomiting: No Progress Note Post-operative progress note: patient with small bump near left angle of the mandible, non-tender slightly red. patient reports no pain there. discussed that something could have bumped his chin there, could be from tape or from jaw thrust. answered all of the patient and family questions. he was appreciative. Complications Anesthesia Complication: No
== END 2024-10-11 09:46 | disposition home or self-care (01) ==
LOC: SDC 05:20 → AC 05:21
PROVIDERS: PCP Family Medicine; Referring Provider Urology; Visit Provider Urology
PROC: (CPT 55874; principal; 2024-10-11 07:15)
DX: C61 Malignant neoplasm of prostate (principal); E78.5 Hyperlipidemia, unspecified; Z79.01 Long term (current) use of anticoagulants; I10 Essential (primary) hypertension; Z79.899 Other long term (current) drug therapy
CPT/HCPCS: 55874; 55876; 00902; A4648; C1889; J2405

== ENCOUNTER → 2024-10-18 | Outpatient (CLI) | payer MEDICARE, OTHER, SELFPAY ==
--- NOTE | 2024-10-18 09:42 | MRI_ITS ---
PROCEDURE: PELVIS W/WO CONTRAST, 10/18/2024 REASON FOR EXAM: EVAL DISEASE, PLANNING FOR PROSTATE SBRT TECHNIQUE: Multisequence multiplanar MRI pelvis was performed with and without IV contrast. IV Contrast: 17 mL Clariscan. PSA reportedly 11.9 in July 2024. COMPARISON: None FINDINGS: Evaluation of the peripheral zone is limited by scattered T1 bright presumed post biopsy blood products. Minimal artifact on diffusion related to probable fiducial markers. Prostate size: 4.1 x 2.4 x 3.6 cm, estimated volume 18.4 mL. Per the above provided PSA, PSA density is 0.92 ng/mL. Placement of spacer gel between the anterior rectum and prostate, with good separation, closest margin at the level of the apex roughly 5-7 mm. Suspect grade 1-2 anterior rectal wall infiltration. Transition zone: PI-RADS 2 findings. Peripheral Zone: Limitations related to presumed post biopsy blood products as above. Ill-defined diffuse T2 hypointensity virtually throughout the entire somewhat diminutive peripheral zone extending from base to apex with small areas of relative sparing along the anterior peripheral zones, making delineation of discrete lesions challenging. The involved areas nearly diffusely demonstrate early/contemporaneous enhancement and mild restricted diffusion and span virtually the diameter of the gland, roughly 3.8 cm at the level of series 14, image 18). Most suspicious diffusion signal is in the RIGHT posteromedial peripheral zone apex at the level of series 14 image 19-20. Findings are difficult to categorize but technically meet criteria for PI-RADS 4. Extracapsular extension:No definite extracapsular extension, however, there is broad-based capsular abutment well over 1 cm bilaterally which increases the risk of occult early/microscopic extracapsular extension. Note that this includes the regions of the bilateral neurovascular bundles and bases of the bilateral seminal vesicles which appear grossly uninvolved. Neurovascular bundles: As above. Seminal vesicles: Unremarkable. Bladder: Underdistended and suboptimally evaluated. Bladder wall thickening and trabeculation suggesting chronic bladder outlet obstruction. Lymph nodes: No overt pelvic lymphadenopathy by PI-RADS criteria. Mildly prominent but technically nonenlarged proximal RIGHT external iliac and distal LEFT external iliac nodes by PI-RADS criteria, up to 6 mm short axis.. Bones: Heterogeneous marrow signal without frankly destructive or discrete/suspicious bony lesion identified. Presumably degenerative small focus of enhancement within the posterosuperior subarticular LEFT acetabulum. Lumbar facet arthropathy. Other: Diverticulosis. Small fat containing umbilical hernia.. MRI/Pelvis W/WO Contrast IMPRESSION: 1. Placement of spacer gel between the anterior rectum and prostate, with good separation. 2. Nearly diffuse ill-defined signal abnormalities throughout the bilateral per ipheral zones extending from base to apex spanning virtually the diameter of the gland, roughly 3.8 cm, slightly difficult to aruna gorize but technically PI-RADS 4. 3. No definite extracapsular extension, however, there is broad-based capsular abutment well over 1 cm bilaterally which increases the risk of occult early/microscopic extracapsular extension. Note th at this includes the regions of the bilateral neurovascular bundles and bases of the bilateral seminal vesicles which appear grossly uninvolved. 4. No overt pelvic lymphadenopathy. Mildly prominent but technically nonenlarge d bilateral external iliac lymph nodes by PI-RADS criteria are nonspecific. 5. Additional description as above. Reading Location: [id number]
== END | disposition home or self-care (01) ==
LOC: MRI 09:29
PROVIDERS: PCP Family Medicine; Referring Provider Student in an Organized Health Care Education/Training Program; Visit Provider Student in an Organized Health Care Education/Training Program
DX: C61 Malignant neoplasm of prostate (principal)
CPT/HCPCS: 72197; A9575; A4216

== ENCOUNTER → 2025-04-25 | Outpatient (CLI) | payer MEDICARE, OTHER, SELFPAY ==
[2025-04-25 10:58] LABS: PSA,Total- Diagnostic < 0.02 ng/mL (0.00-4.00)
== END | disposition home or self-care (01) ==
LOC: LAB 08:53
PROVIDERS: Student in an Organized Health Care Education/Training Program; PCP Family Medicine; Referring Provider Urology; Visit Provider Urology
DX: C61 Malignant neoplasm of prostate (principal)
CPT/HCPCS: 36415; 84153

== ENCOUNTER → 2025-05-09 | Outpatient (CLI) | payer MEDICARE, OTHER, SELFPAY ==
[2025-05-09 10:19] LABS: Hematocrit 40.9 % (40-54); Hemoglobin 13.6 g/dL (13.0-16.5); Immature Granulocytes Count 0.000 X10^3/uL (0.0-0.0); Mean Corp Hgb Conc 33.3 g/dL (32-36); Mean Corpuscular Volume 96.0 fL (80-94); Mean Platelet Vol. 9.2 fl (6.2-12.0); NRBC Flagged by Analyzer 0 % (0-5); Platelet Count 174 K/mm3 (150-450); RBC Distribution Width CV 12.6 % (11.6-14.6); RBC Distribution Width SD 44.4 fl (35.1-43.9); Red Blood Count 4.26 M/mm3 (4.6-6.2); White Blood Count 4.2 K/mm3 (4.4-11.0)
[2025-05-09 12:08] LABS: Creatinine, Urine (random) 156.00 mg/dL (39.00-259.00); Microalbumin,Random Urine 23.5 mg/L (<20 mg/L)
[2025-05-09 13:27] LABS: AST(SGOT) 20 U/L (<=37); Alanine Aminotransfer ALT/SGPT 28 U/L (<=46); Albumin, Serum 4.1 g/dL (3.4-4.8); Alkaline Phosphatase 74 U/L (40-129); Anion Gap 11 (5-15); BUN 27 mg/dL (4-19); BUN/Creat Ratio 29.2 RATIO (10-20); Calcium,Total 9.3 mg/dL (7.6-11.0); Carbon Dioxide 24.4 mmol/L (21.0-32.0); Chloride 106 mmol/L (98-108); Cholesterol 224 mg/dL (<=200); Ferritin 300 ng/mL (37-417); Globulin 2.8 g/dL (2.2-4.2); Glucose 103 mg/dL (70-99); Low Density Lipoprotein Calc. 167 mg/dL; Potassium 4.1 mmol/L (3.3-5.1); Triglycerides 65 mg/dL; Very Low Density Lipoprotein 13 mg/dL (5-40); Vitamin B12 783 pg/mL (180-914); cholesterol:hdl ratio screen 4.85
[2025-05-09 13:45] LABS: FOLATES,SERUM (FOLIC ACID) 36.90 ng/mL (4.60-34.80)
== END | disposition home or self-care (01) ==
LOC: MFPLAB 09:13
PROVIDERS: PCP Family Medicine; Visit Provider Family Medicine
DX: I10 Essential (primary) hypertension (principal); I48.91 Unspecified atrial fibrillation; E78.5 Hyperlipidemia, unspecified; Z51.81 Encounter for therapeutic drug level monitoring
CPT/HCPCS: 36415; 80053; 80061; 82043; 82570; 82607; 82728; 82746; 84443; 85025